=== PATIENT | female | born 1995 | race Caucasian/White ===

== ENCOUNTER 2017-11-07 05:40 | Emergency (ER) | payer SELFPAY ==
[2017-11-07] MEDS ORDERED: Ibuprofen 600 MG Tab PO ONE (05:57)
[2017-11-07] MEDS ORDERED: Acetaminophen 325 MG Tab PO ONE (05:57)
--- NOTE | 2017-11-07 06:03 | EDM.PDOC ---
ED HPI GENERAL MEDICAL PROBLEM - General Chief Complaint: General Stated Complaint: FEVER Time Seen by Provider: 11/07/17 05:54 - History of Present Illness INITIAL COMMENTS - FREE TEXT/NARRATIVE: HISTORY AND PHYSICAL: History of present illness: The patient is a 22-year-old female with no stated medical history who presents with complaints of dry cough sore throat body aches that started yesterday and then fever this morning approximately 2 hours ago for which she took a small amount of liquid Tylenol. Patient is unsure of the exact gram amount of Tylenol that she did take. She also complains of a diffuse headache and persistent sore throat and generalized body aches and malaise. She's had no vomiting or diarrhea and denies ;she did not get her flu shot this year. She has not had nasal drainage or congestion. Review of systems: As per history of present illness and below otherwise all systems reviewed and negative. Past medical history: As per history of present illness and as reviewed below otherwise noncontributory. Surgical history: As per history of present illness and as reviewed below otherwise noncontributory. Social history: No reported history of drug or alcohol abuse. Family history: As per history of present illness and as reviewed below otherwise noncontributory. Physical exam: Gen.: Well-developed well-nourished female who is nontoxic and vital signs have been reviewed by me HEENT: Atraumatic, normocephalic, pupils reactive, negative for conjunctival pallor or scleral icterus, mucous membranes moist, throat clear of exudates but posterior oropharynx is very erythematous, there is no cervical adenopathy or nuchal rigidity and no discrete sinus tenderness,, neck supple, nontender, trachea midline. Lungs: Clear to auscultation, breath sounds equal bilaterally, chest nontender. No work of breathing or accessory muscle use stridor or wheezing Heart: S1S2, regular rhythm slightly tachycardic rate on my evaluation no overt murmurs, Abdomen: Soft, nondistended, nontender. Negative for masses or hepatosplenomegaly. NABS Pelvis: Stable nontender. Genitourinary: Deferred. Rectal: Deferred. Extremities: Atraumatic, negative for cords or calf pain. Neurovascular unremarkable. Neuro: Awake, alert, oriented. Cranial nerves II through XII unremarkable. Cerebellum unremarkable. Motor and sensory unremarkable throughout. Exam nonfocal. Diagnostics: Rapid strep influenza Therapeutics: Tylenol in appropriate dose for weight and Motrin I advised the patient that she should be taking Tylenol and Motrin in appropriate doses and that the small capful of liquid Tylenol that she took 2 hours ago was likely not an appropriate dose for her size. I've also advised the patient to push hydration and to follow-up with one of our clinic physicians or her provider. Impression: Viral URI/fever Definitive disposition and diagnosis as appropriate pending reevaluation and review of above. headache Pain Score (Numeric/FACES): 8 - Related Data Allergies Allergy/AdvReac Type Severity Reaction Status Date / Time No Known Allergies Allergy Verified 11/07/17 05:52 Home Meds: Home Meds . [No Known Home Meds] 11/07/17 [History] Past Medical History [employer] History: Reports: Psychiatric History: Reports: Anxiety, Depression Social & Family History - Family History Family Medical History: Noncontributory - Tobacco Use Smoking Status *Q: Never Smoker Second Hand Smoke Exposure: No - Caffeine Use Caffeine Use: Reports: Coffee - Recreational Drug Use Recreational Drug Use: No ED ROS GENERAL - Review of Systems Review Of Systems: ROS reveals no pertinent complaints other than HPI. ED EXAM, GENERAL - Physical Exam Exam: See Below (See dictation) Course - Vital Signs Last Recorded V/S: Last Vital Signs Temp 38.7 C H 11/07/17 06:41 Pulse 107 H 11/07/17 06:41 Resp 17 11/07/17 06:41 BP 94/49 L 11/07/17 06:41 Pulse Ox 95 11/07/17 06:41 - Orders/Labs/Meds Orders: Active Orders 24 hr Category Date Time Status CULTURE STREP A CONFIRMATION [RM] Stat Lab 11/07/17 05:57 Results STREP SCRN A RAPID W CULT CONF [RM] Stat Lab 11/07/17 05:57 Results Meds: Medications Discontinued Medications Generic Name Dose Route Start Last Admin Trade Name Freq PRN Reason Stop Dose Admin Acetaminophen 650 mg 11/07/17 05:57 11/07/17 06:09 Tylenol PO 11/07/17 05:58 650 mg NOW ONE Administration Ibuprofen 600 mg 11/07/17 05:57 11/07/17 06:08 Motrin PO 11/07/17 05:58 600 mg ONETIME ONE Administration Departure - Departure Time of Disposition: 06:42 Disposition: Home, Self-Care 01 Condition: Good Clinical Impression: Viral URI with cough Pharyngitis Qualifiers: Pharyngitis/tonsillitis etiology: other specified organisms Qualified Code(s): J02.8 - Acute pharyngitis due to other specified organisms Fever Qualifiers: Fever type: unspecified Qualified Code(s): R50.9 - Fever, unspecified - Discharge Information Referrals: PCP,None [Primary Care Provider] - Forms: ED Department Discharge Additional Instructions: The following information is given to patients seen in the emergency department who are being discharged to home. This information is to outline your options for follow-up care. We provide all patients seen in our emergency department with a follow-up referral. The need for follow-up, as well as the timing and circumstances, are variable depending upon the specifics of your emergency department visit. If you don't have a primary care physician on staff, we will provide you with a referral. We always advise you to contact your personal physician following an emergency department visit to inform them of the circumstance of the visit and for follow-up with them and/or the need for any referrals to a consulting specialist. The emergency department will also refer you to a specialist when appropriate. This referral assures that you have the opportunity for followup care with a specialist. All of these measure are taken in an effort to provide you with optimal care, which includes your followup. Under all circumstances we always encourage you to contact your private physician who remains a resource for coordinating your care. When calling for followup care, please make the office aware that this follow-up is from your recent emergency room visit. If for any reason you are refused follow-up, please contact the [facility] emergency department at and ask to speak to the emergency department charge nurse. [facility] Primary care- Internal Medicine and Family [address] [address] Push hydration and avoid caffeinated products and use [id number] Tylenol, 650 mg to 1000 mg every 6 hours, and ibuprofen/Motrin 600 mg every 6 hours, to help control fever and bodyaches. Please follow-up with your provider in the clinic or one of our providers in the next few days for reevaluation and further care. Rest and return to ER as needed and as discussed - My Orders Last 24 Hours: My Active Orders 11/07/17 05:57 CULTURE STREP A CONFIRMATION [RM] Stat STREP SCRN A RAPID W CULT CONF [RM] Stat - Assessment/Plan Last 24 Hours: My Active Orders 11/07/17 05:57 CULTURE STREP A CONFIRMATION [RM] Stat STREP SCRN A RAPID W CULT CONF [RM] Stat
== END 2017-11-07 06:55 | disposition home or self-care (01) ==
LOC: MW.ED 05:40
DX: J02.8 Acute pharyngitis due to other specified organisms (principal)
CPT/HCPCS: 87081; 87804; 87880; 99283; A9270

== ENCOUNTER 2018-01-26 12:31 | Emergency (ER) | payer SELFPAY ==
--- NOTE | 2018-01-26 12:53 | EDM.PDOC ---
ED HPI GENERAL MEDICAL PROBLEM - General Chief Complaint: Genitourinary Problem Stated Complaint: PELVIC HURTS Time Seen by Provider: 01/26/18 12:51 Source of Information: Reports: Patient - History of Present Illness INITIAL COMMENTS - FREE TEXT/NARRATIVE: HISTORY AND PHYSICAL: History of present illness: [Patient presents with pelvic discomfort at the [place] present on and off for the last year, she has IUD placement this coincides with pelvic discomfort however she also has a sexual partner that was diagnosed with chlamydia Patient states she has been monogamous with his partner that her last intercourse was yesterday patient was cultured Chlamydia positive Patient also has a history of pain since the IUD was placed and she is desiring to have the IUD removed No fever nausea vomiting chills sweats ] Review of systems: As per history of present illness and below otherwise all systems reviewed and negative. Past medical history: As per history of present illness and as reviewed below otherwise noncontributory. Surgical history: As per history of present illness and as reviewed below otherwise noncontributory. Social history: No reported history of drug or alcohol abuse. Family history: As per history of present illness and as reviewed below otherwise noncontributory. Physical exam: HEENT: Atraumatic, normocephalic, pupils reactive, negative for conjunctival pallor or scleral icterus, mucous membranes moist, throat clear, neck supple, nontender, trachea midline. Lungs: Clear to auscultation, breath sounds equal bilaterally, chest nontender. Heart: S1S2, regular, negative for clicks, rubs, or JVD. Abdomen: Soft, nondistended, nontender. Negative for masses or hepatosplenomegaly. Negative for costovertebral tenderness. Pelvis: Stable nontender. Genitourinary: Deferred. Rectal: Deferred. Extremities: Atraumatic, negative for cords or calf pain. Neurovascular unremarkable. Neuro: Awake, alert, oriented. Cranial nerves II through XII unremarkable. Cerebellum unremarkable. Motor and sensory unremarkable throughout. Exam nonfocal. Diagnostics: [ UA GC Chlamydia ]CBC Therapeutics: [ 1 g azithromycin 250 mg IM Rocephin ] follow-up with gynecology concerning possible IUD removal follow-up with gynecology for removal next week of IUD patient request Impression Chlamydia exposure History of IUD ] Definitive disposition and diagnosis as appropriate pending reevaluation and review of above. Lower Abdomen Pain Score (Numeric/FACES): 4 - Related Data Allergies Allergy/AdvReac Type Severity Reaction Status Date / Time No Known Allergies Allergy Verified 01/26/18 12:53 Home Meds: Home Meds . [No Known Home Meds] 11/07/17 [History] Past Medical History [employer]ESS History: Reports: Psychiatric History: Reports: Anxiety, Depression Social & Family History - Family History Family Medical History: Noncontributory - Tobacco Use Smoking Status *Q: Never Smoker Second Hand Smoke Exposure: No - Caffeine Use Caffeine Use: Reports: Coffee - Recreational Drug Use Recreational Drug Use: No ED ROS GENERAL - Review of Systems Review Of Systems: ROS reveals no pertinent complaints other than HPI. ED EXAM, GENERAL - Physical Exam Exam: See Below Course - Vital Signs Last Recorded V/S: Last Vital Signs Temp 97.8 F 01/26/18 12:46 Pulse 78 01/26/18 12:46 Resp 14 01/26/18 12:46 BP 113/69 01/26/18 12:46 Pulse Ox 100 01/26/18 12:46 - Orders/Labs/Meds Orders: Active Orders 24 hr Category Date Time Status CHLAMYDIA AND GONORRHEA BY TMA Stat Lab 01/26/18 13:46 Received UA W/MICROSCOPIC [URIN] Stat Lab 01/26/18 13:46 Ordered Labs: Laboratory Tests 01/26/18 01/26/18 Range/Units 13:01 13:46 WBC 8.36 (4.0-11.0) K/uL RBC 4.25 L (4.30-5.90) M/uL Hgb 12.9 (12.0-16.0) g/dL Hct 37.8 (36.0-46.0) % MCV 88.9 (80.0-98.0) fL MCH 30.4 (27.0-32.0) pg MCHC 34.1 (31.0-37.0) g/dL RDW Std Deviation 44.0 (28.0-62.0) fl RDW Coeff of Benjamin 14 (11.0-15.0) % Plt Count 297 (150-400) K/uL MPV 9.70 (7.40-12.00) fL Neut % (Auto) 60.4 (48.0-80.0) % Lymph % (Auto) 28.6 (16.0-40.0) % [place] % (Auto) 9.7 (0.0-15.0) % Eos % (Auto) 1.1 (0.0-7.0) % Baso % (Auto) 0.2 (0.0-1.5) % Neut # (Auto) 5.1 (1.4-5.7) K/uL Lymph # (Auto) 2.4 (0.6-2.4) K/uL [place] # (Auto) 0.8 (0.0-0.8) K/uL Eos # (Auto) 0.1 (0.0-0.7) K/uL Baso # (Auto) 0.0 (0.0-0.1) K/uL Nucleated RBC % 0.0 /100WBC Nucleated RBCs # 0 K/uL Urine Color YELLOW Urine Appearance CLEAR Urine pH 7.0 (5.0-8.0) Ur Specific [place] 1.015 (1.001-1.035) Urine Protein NEGATIVE (NEGATIVE) mg/dL Urine Glucose (UA) NEGATIVE (NEGATIVE) mg/dL Urine Ketones NEGATIVE (NEGATIVE) mg/dL Urine Occult Blood NEGATIVE (NEGATIVE) Urine Nitrite NEGATIVE (NEGATIVE) Urine Bilirubin NEGATIVE (NEGATIVE) Urine Urobilinogen 0.2 (<2.0) EU/dL Ur Leukocyte Esterase NEGATIVE (NEGATIVE) Urine RBC 0-1 (0-2/HPF) Urine WBC 0-1 (0-5/HPF) Ur Epithelial Cells OCCASIONAL (NONE-FEW) Urine Bacteria RARE (NEGATIVE) Meds: Medications Discontinued Medications Generic Name Dose Route Start Last Admin Trade Name José Antonio PRN Reason Stop Dose Admin Azithromycin 1,000 mg 01/26/18 14:15 Zithromax PO 01/26/18 14:16 NOW STA Ceftriaxone Sodium 250 mg/ 1 mls @ 1 mls/sec 01/26/18 14:15 Lidocaine HCl IM 01/26/18 14:16 ONETIME ONE Departure - Departure Time of Disposition: 14:20 Disposition: Home, Self-Care 01 Condition: Good Clinical Impression: Exposure to chlamydia - Discharge Information Referrals: PCP,None [Primary Care Provider] - Forms: ED Department Discharge Additional Instructions: Lab cultures are pending at this time Follow-up with gynecology for removal of IUD as you have requested ER referral for [facility]cologyNext [facility] [address] [place] [id number] The following information is given to patients seen in the emergency department who are being discharged to home. This information is to outline your options for follow-up care. We provide all patients seen in our emergency department with a follow-up referral. The need for follow-up, as well as the timing and circumstances, are variable depending upon the specifics of your emergency department visit. If you don't have a primary care physician on staff, we will provide you with a referral. We always advise you to contact your personal physician following an emergency department visit to inform them of the circumstance of the visit and for follow-up with them and/or the need for any referrals to a consulting specialist. The emergency department will also refer you to a specialist when appropriate. This referral assures that you have the opportunity for follow-up care with a specialist. All of these measure are taken in an effort to provide you with optimal care, which includes your follow-up. Under all circumstances we always encourage you to contact your private physician who remains a resource for coordinating your care. When calling for follow-up care, please make the office aware that this follow-up is from your recent emergency room visit. If for any reason you are refused follow-up, please contact the [facility] emergency department at and asked to speak to the emergency department charge nurse. - My Orders Last 24 Hours: My Active Orders 01/26/18 13:46 CHLAMYDIA AND GONORRHEA BY TMA Stat UA W/MICROSCOPIC [URIN] Stat - Assessment/Plan Last 24 Hours: My Active Orders 01/26/18 13:46 CHLAMYDIA AND GONORRHEA BY TMA Stat UA W/MICROSCOPIC [URIN] Stat
[2018-01-26] MEDS ORDERED: Azithromycin 250 MG Tab PO STA (14:15)
[2018-01-26] MEDS ORDERED: cefTRIAXone 250 MG in Lidocaine 1% 1 ML IM ONE (14:15)
== END 2018-01-26 15:00 | disposition home or self-care (01) ==
LOC: MW.ED 12:31
DX: Z20.2 Contact with and (suspected) exposure to infections with a predominantly sexual mode of transmission (principal); Z97.5 Presence of (intrauterine) contraceptive device
CPT/HCPCS: 36415; 81001; 85025; 87491; 87591; 96372; 99283; A9270; J0696; J2001

== ENCOUNTER 2018-04-27 18:28 | Emergency (ER) | payer SELFPAY | END 2018-04-27 18:50 | LOC: MW.ED 18:28 | DX: Z53.21 Procedure and treatment not carried out due to patient leaving prior to being seen by health care provider (principal) ==